=== PATIENT | male | born 1940 | race Caucasian/White ===

== ENCOUNTER 2017-02-09 16:42 | Emergency (ER) | payer MEDICARE, BC ==
[~2017-02-09] VITALS: Ht 172.7 cm; Wt 86.2 kg
--- NOTE | ~2017-02-09 | CR173 ---
[facility] A Service of [facility] RADIOLOGY TEXT RESULTS PATIENT: DOLORES TRAN LOCATION: SED : 38 UNIT #: [id number] AGE: [address]: KAYE CHANDLER SEX: M ORDER DR: [id number] [place] [id number] E MR#: [id number] #: [id number] NAME: DOLORES TRAN : 1940 SEX: M STUDY DATE/TIME: 02/09/2017 17:10 UNIT: SED ROOM: STUDY DESCRIPTION: CR Knee 3 Views Rt Attending Physician: Kaye Chandler Ordering Physician: Kaye Chandler Primary Care Physician: No Primary Care Physician MEDICAL IMAGING REPORT This report is preliminary unless electronic signature is present. EXAM Right knee 3 views HISTORY Knee pain since yesterday. No injury. 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 Mild degenerative changes in the medial and lateral compartments. No fracture. No effusion. Arterial calcifications. IMPRESSION 1. No acute findings. 2. 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 Dictated by... Denton Joseph M.D. THIS IS AN ELECTRONICALLY VERIFIED REPORT Denton Joseph M.D. at 02/10/2017 6:07 PM DFL/anna TD: 02/09/2017 23:25 JOB #: [id number] MEDICAL IMAGING REPORT Page 1 of 1
[2017-02-09] MEDS ORDERED: CELECOXIB50 MG (16:51)
[2017-02-09] MEDS ORDERED: CLOPIDOGREL75 MG (16:51)
[2017-02-09] MEDS ORDERED: GLUCOPHAGE XR500 MG (16:51)
[2017-02-09] MEDS ORDERED: ZOCOR10 MG (16:52)
[2017-02-09] MEDS ORDERED: ST JOSEPH ASPIR81 MG (16:52)
[2017-02-09] MEDS ORDERED: AMLODIPINE BESYL5 MG (16:52)
[2017-02-09] MEDS ORDERED: SOTALOL120 MG (16:52)
[2017-02-09] MEDS ORDERED: ULTRAM (16:52)
[2017-02-09] MEDS ORDERED: TAMSULOSIN HCL0.4 MG (16:53)
[2017-02-09] MEDS ORDERED: PRILOSEC10 M1 (16:53)
[2017-02-09] MEDS ORDERED: COZAAR100 MG (16:53)
== END 2017-02-09 18:53 | disposition home or self-care (01) ==
LOC: SED 16:42
DX: M25.561 Pain in right knee (principal); G89.29 Other chronic pain; E11.9 Type 2 diabetes mellitus without complications; E78.5 Hyperlipidemia, unspecified; I11.9 Hypertensive heart disease without heart failure
CPT/HCPCS: 29530; 73562; 99283